=== PATIENT | female | born 1935 | race Caucasian/White ===

== ENCOUNTER 2023-01-28 16:56 | Inpatient (IN) | payer MEDICARE, OTHER ==
[2023-01-28 21:21] VITALS: BMI 25.8
[2023-01-28] MEDS ORDERED: Morphine 2 MG/ML VIAL SLOW IVP SCH (23:45)
[2023-01-28] MEDS ORDERED: Rib Fracture Protocol IV SCH (23:45)
[2023-01-28] MEDS ORDERED: Dextrose 5% in Water 1,000 ML IV PRN (23:59)
[2023-01-28] MEDS ORDERED: Dextrose 50% Abboject 50 ML SYRINGE SLOW IVP PRN (23:59)
[2023-01-28] MEDS ORDERED: Ondansetron PF 4 MG/2 ML Vial IVP PRN (23:59)
[2023-01-28] MEDS ORDERED: Morphine 2 MG/ML VIAL SLOW IVP PRN (23:59)
[2023-01-28] MEDS ORDERED: Glucagon 1 MG/ML KIT IM PRN (23:59)
[2023-01-28] MEDS ORDERED: traMADol HCl 50 MG TAB PO PRN (23:59)
[2023-01-28] MEDS ORDERED: TETANUS, DIPHTHERIA TOX,ADULT (TDVAX) 0.5 ML VIAL IM ONE (23:59)
[2023-01-28] MEDS ORDERED: Ipratropium/Albuterol 3 ML NEB NEB PRN (23:59)
[2023-01-29] MEDS: Acetaminophen 325 MG TAB PO SCH ×4 (01:16→17:27)
[2023-01-29] MEDS: Ketorolac Tromethamine 30 MG/ML VIAL IVP SCH ×3 (01:16→11:34)
[2023-01-29] MEDS: Acetaminophen 650 MG Suppository PR SCH ×4 (01:17→17:15)
[2023-01-29] MEDS: Ipratropium/Albuterol 3 ML NEB NEB SCH ×3 (02:54→12:54)
[2023-01-29] MEDS ORDERED: CEFAZOLIN 2 GM in Sodium Chloride 0.9% 100 ML IVPB SCH (07:30)
[2023-01-29] MEDS: Famotidine/PF 20 mg/2ml Vial SLOW IVP SCH (07:56)
[2023-01-29] MEDS: Flecainide 50 MG TAB PO SCH (20:37)
[2023-01-29] MEDS ORDERED: Atorvastatin Calcium 40 MG TAB PO SCH (21:00)
[2023-01-30 05:44] LABS: #Basophils 0.1 thou/uL (0.0-0.2); #Eosinphils 0.3 thou/uL (0.0-0.7); %Basophils 0.9 % (0.0-1.0); %Eosinophils 4.2 % (0.0-10.0); %Lymphocytes 26.2 % (21.0-51.0); %Monocytes 13.5 % (0.0-10.0); %Neutrophils 54.5 % (42.0-75.0); Hematocrit 32.3 % (36.0-47.0); Hemoglobin 10.6 g/dL (12.0-16.0); Mean Corpuscular HGB CONC 32.8 g/dL (32.0-36.0); Mean Corpuscular Hemoglobin 35.9 pg (27.0-31.0); Mean Corpuscular Volume 109.5 fl (78.0-98.0); Platelet Count 256 10x3/uL (130-400); RBC Distribution Width 13.4 % (11.5-14.5); Red Blood Cell (RBC) Count 2.95 mill/uL (4.20-5.40); White Blood Cell (WBC) Count 7.4 10x3/uL (4.8-10.8)
[2023-01-30] MEDS ORDERED: Levothyroxine Sodium 112 MCG TAB PO SCH ×2 (06:00→09:00)
[2023-01-30 06:09] LABS: Anion Gap 16 mmol/L (10-20); BUN (Urea Nitrogen) 32 mg/dL (9.8-20.1); Calc. Creatinine Clearance 35 mL/min (70-130); Calcium 8.3 mg/dL (7.8-10.44); Carbon Dioxide 21 mmol/L (23-31); Chloride 105 mmol/L (98-107); Estimated GFR 39; Glucose 84 mg/dL (83-110); Potassium 4.5 mmol/L (3.5-5.1); Sodium 137 mmol/L (136-145)
[2023-01-30] MEDS ORDERED: Bupivacaine PF 0.5% 30 ML VIAL ONE (06:44)
[2023-01-30] MEDS ORDERED: EPINEPHrine 1 MG/ML AMP ONE (06:44)
[2023-01-30] MEDS ORDERED: Midazolam HCl 2 mg/2 ml Vial ONE (06:45)
[2023-01-30] MEDS ORDERED: Ropivacaine 0.2% HCl/PF 20 ML ONE (06:45)
[2023-01-30] MEDS ORDERED: fentaNYL 50 mcg/mL 1 mL Vial ONE (06:45)
[2023-01-30] MEDS ORDERED: Dexamethasone 4 mg/ml Vial ONE (06:45)
[2023-01-30] MEDS ORDERED: Ropivacaine 0.5% HCl/PF (150 MG/30 ML VIAL) ONE (06:45)
[2023-01-30] MEDS ORDERED: Sodium Chloride 0.9% 100 ML ONE (06:52)
[2023-01-30] MEDS ORDERED: CEFAZOLIN 2 GM VIAL ONE (06:52)
[2023-01-30] MEDS ORDERED: Ondansetron PF 4 MG/2 ML Vial ONE (07:17)
[2023-01-30] MEDS ORDERED: PHENYLEPHRINE-NS 100 MCG/ML 10 ML SYRINGE ONE (07:17)
[2023-01-30] MEDS ORDERED: PROPOFOL 200 MG/20 ML VIAL ONE (07:17)
[2023-01-30] MEDS ORDERED: Lidocaine 1% PF 5 ML VIAL ONE (07:17)
[2023-01-30] MEDS ORDERED: VIT C CA PO SCH (09:00)
[2023-01-30] MEDS ORDERED: CRANBERRY FRUIT EXTRACT PO SCH (09:00)
[2023-01-30] MEDS ORDERED: Hydroxyurea 500 MG CAP PO SCH (09:00)
[2023-01-30] MEDS ORDERED: Cholecalciferol 1,000 UNITS (25 MCG) TAB PO SCH (09:00)
[2023-01-30] MEDS ORDERED: Polyethylene Glycol 3350 17 GM Packet PO SCH (09:00)
[2023-01-30] MEDS ORDERED: [UNRECOGNIZED DRUG - OTHER] PO SCH (09:00)
[2023-01-30] MEDS ORDERED: Raloxifene 60 MG TAB PO SCH (09:00)
[2023-01-30] MEDS: Famotidine/PF 20 mg/2ml Vial SLOW IVP SCH (10:46)
[2023-01-30] MEDS: Flecainide 50 MG TAB PO SCH (10:47)
[2023-01-30] MEDS ORDERED: Sodium Chloride 0.9% 1,000 ML IV SCH (11:00)
[2023-01-30] MEDS ORDERED: Lactated Ringer's 1,000 ML IV SCH (11:15)
[2023-01-30 13:41] VITALS: TEMP 97.4
[2023-01-30 13:52] LABS: Chloride 129 mmol/L (98-107); Sodium 145 mmol/L (136-145)
[2023-01-30 13:53] LABS: Glucose 64 mg/dL (83-110)
[2023-01-30 13:54] LABS: Carbon Dioxide 10 mmol/L (23-31)
[2023-01-30 13:55] LABS: Anion Gap 8 mmol/L (10-20)
[2023-01-30 13:57] LABS: BUN (Urea Nitrogen) 13 mg/dL (9.8-20.1)
[2023-01-30 14:18] LABS: Calc. Creatinine Clearance 105 mL/min (70-130); Calcium 3.3 mg/dL (7.8-10.44); Estimated GFR 94
[2023-01-30 15:36] LABS: Anion Gap 14 mmol/L (10-20); BUN (Urea Nitrogen) 25 mg/dL (9.8-20.1); Calc. Creatinine Clearance 42 mL/min (70-130); Carbon Dioxide 18 mmol/L (23-31); Chloride 108 mmol/L (98-107); Estimated GFR 49; Glucose 162 mg/dL (83-110); Potassium 4.4 mmol/L (3.5-5.1); Sodium 136 mmol/L (136-145)
[2023-01-30 16:18] VITALS: BP 130/74
== END 2023-01-30 17:40 | disposition home or self-care (01) | DRG 512 ==
LOC: SURG A 19:59 → EDSTATUS 19:59
PROVIDERS: ADMIT Surgery; ATTEND Surgery
PROC: 0PSJ04Z Reposition Left Radius with Internal Fixation Device, Open Approach (ICD-10-PCS; principal; 2023-01-30)
DX: S52.532A Colles' fracture of left radius, initial encounter for closed fracture (principal); W18.30XA Fall on same level, unspecified, initial encounter; I48.91 Unspecified atrial fibrillation; I10 Essential (primary) hypertension; Z79.01 Long term (current) use of anticoagulants; Z79.899 Other long term (current) drug therapy; Z88.1 Allergy status to other antibiotic agents; Z91.040 Latex allergy status; Z79.82 Long term (current) use of aspirin; Z88.8 Allergy status to other drugs, medicaments and biological substances; Z88.2 Allergy status to sulfonamides
CPT/HCPCS: 25605; 36415; 80048; 80053; 85025; 85610; 85730; 90471; 90715; 96365; 96375; 96376; C1713; J0171; J1100; J1885; J2250; J2272; J2405; J2704; J2795; J3010; J3490; J7050; S0020; S0028